=== PATIENT | female | born 1945 | race Caucasian/White ===

== ENCOUNTER 2024-09-16 17:07 | Emergency (ER) | payer MEDICARE | END 2024-09-16 18:35 | disposition home or self-care (01) | LOC: JD.ED 17:07 | DX: S06.0X0A Concussion without loss of consciousness, initial encounter (principal); S00.03XA Contusion of scalp, initial encounter; E78.00 Pure hypercholesterolemia, unspecified; E11.9 Type 2 diabetes mellitus without complications; Z91.048 Other nonmedicinal substance allergy status; Z91.012 Allergy to eggs; W19.XXXA Unspecified fall, initial encounter | CPT/HCPCS: 70450; 70450-26; 99283; 99284 ==